=== PATIENT | female | born 1980 | race Caucasian/White ===

== ENCOUNTER 2018-05-13 02:18 | Outpatient (CLI) | END 2018-05-13 08:20 | disposition home or self-care (01) ==

== ENCOUNTER 2018-05-31 22:50 | Inpatient (IN) | END 2018-06-01 09:28 | disposition home or self-care (01) | DRG 833 ==

== ENCOUNTER 2018-06-04 20:18 | Inpatient (IN) | END 2018-06-06 12:12 | disposition left against medical advice (07) | DRG 832 ==